=== PATIENT | male | born 1965 | race Caucasian/White ===

== ENCOUNTER 2018-04-16 21:58 | Inpatient (IN) ==
[2018-04-17] MEDS ORDERED: LACTULOSE 20 GM/30 ML UDCUP PO PRN (00:57)
[2018-04-17] MEDS ORDERED: NICOTINE 21 MG/24 HR PATCH TRANSDERM PRN (00:57)
[2018-04-17] MEDS ORDERED: MORPHINE 4 MG/1 ML VIAL IV PRN ×2 (00:57→08:43)
[2018-04-17] MEDS ORDERED: ZALEPLON 5 MG CAPSULE PO PRN (00:57)
[2018-04-17] MEDS ORDERED: diphenhydrAMINE CAP 25 MG CAPSULE PO PRN (00:57)
[2018-04-17] MEDS ORDERED: ACETAMINOPHEN 325 MG TABLET PO PRN (00:57)
[2018-04-17] MEDS ORDERED: ONDANSETRON 4 MG/2 ML VIAL IV PRN (00:57)
[2018-04-17] MEDS ORDERED: ALBUTEROL 2.5 MG/3 ML NEB RESP TX PRN (00:57)
[2018-04-17] MEDS ORDERED: PROMETHAZINE 25 MG/1 ML VIAL IM PRN (00:57)
[2018-04-17] MEDS ORDERED: SODIUM CHLORIDE 0.9% 1,000 ML IV SCH (01:00)
[2018-04-17] MEDS ORDERED: NITROGLYCERIN SL 0.4 MG TABLET SL PRN (01:02)
[2018-04-17 01:55] LABS: Basophils % 0.1 % (0.0-0.8); Eosinophils # 0.2 10*3/uL (0.0-0.87); Eosinophils % 2.5 % (0.00-10.9); Hematocrit 41.1 VOL% (42.0-52.0); Hemoglobin 13.8 GM/DL (14.0-18.0); Immature Granulocytes % 0.5 %; Immature Granulocytes Absolute 0.04 #; Lymphocytes # 1.3 10*3/uL (1.4-4.0); Lymphocytes % 16.2 % (21.2-54.2); Mean Corpuscular HGB Conc 33.6 GM/DL (32-36); Mean Corpuscular Hemoglobin 32 PG (27-34); Mean Corpuscular Volume 95.4 FL (87-102); Mean Platelet Volume 11.3 FL (9.6-12.0); Monocytes # 0.6 10*3/uL (0.11-0.8); Monocytes % 6.9 % (1.7-12.7); Neutrophils # 5.9 10*3/uL (1.4-7.4); Neutrophils % 73.8 % (38.7-73.9); Platelet Count 115 T/CUMM (130-400); Red Blood Count 4.31 MC/CUMM (3.8-5.5); Red Cell Distribution Width 13.4 % (9.3-17.3)
[2018-04-17 02:07] LABS: PT Patient Result 10.1 SECS
[2018-04-17 02:16] LABS: Lactic Acid 0.6 MMOL/L (0.4-2.0); Phenytoin (Dilantin) 1.8 UG/ML (10-20)
[2018-04-17 02:18] LABS: Alanine Aminotransferase 15 U/L (16-61); Albumin 3.2 G/DL (3.4-5.0); Alkaline Phosphatase 118 U/L (45-117); Aspartate Amino Transferase 24 U/L (0-37); Bilirubin,Total < 0.39 MG/DL (0.2-1.0); Blood Urea Nitrogen 18 MG/DL (7-18); Calcium 8.5 MG/DL (8.5-10.1); Glucose 120 MG/DL (74-106); Osmolality,Calculated 281.4 MOS/KG (273-304); Potassium 3.7 MMOL/L (3.5-5.1); Sodium 140 MMOL/L (136-145); Total Protein 6.8 G/DL (6.4-8.3)
[2018-04-17 02:24] LABS: Risk Ratio 4.58; Thyroid Stimulating Hormone 3.23 uIU/ml (0.358-3.74); VLDL CHOLESTEROL 42.6 MG/DL
[2018-04-17] MEDS ORDERED: ENOXAPARIN 80 MG/0.8 ML SYRINGE SUBCUT SCH (03:30)
[2018-04-17 05:11] LABS: Apearance,Urine CLEAR (Clear); Bilirubin,Urine Negative (Negative); Blood, Urine Negative (Negative); Glucose,Urine (UA) Negative (Negative); Hyaline Casts,Urine 1 /LPF (0-3); Ketones,Urine Negative (Negative); Mucus,Urine Many /LPF (Occasional); Nitrite,Urine Negative (Negative); Protein,Urine Negative; RBC,Urine 3 /HPF (0-4); Urine Color Yellow (Yellow); Urine Specific Gravity 1.017 (1.001-1.035); Urine Urobilinogen < 2.0 EU/DL (0.2-1.0); WBC,Urine 3 /HPF (0-6)
[2018-04-17 05:24] LABS: Basophils % 0.2 % (0.0-0.8); Eosinophils # 0.2 10*3/uL (0.0-0.87); Hematocrit 41.7 VOL% (42.0-52.0); Hemoglobin 13.7 GM/DL (14.0-18.0); Immature Granulocytes % 0.3 %; Immature Granulocytes Absolute 0.02 #; Lymphocytes # 1.1 10*3/uL (1.4-4.0); Lymphocytes % 17.3 % (21.2-54.2); Mean Corpuscular HGB Conc 32.9 GM/DL (32-36); Mean Corpuscular Hemoglobin 31 PG (27-34); Mean Corpuscular Volume 94.3 FL (87-102); Mean Platelet Volume 11.9 FL (9.6-12.0); Monocytes # 0.5 10*3/uL (0.11-0.8); Monocytes % 7.3 % (1.7-12.7); Neutrophils # 4.5 10*3/uL (1.4-7.4); Neutrophils % 71.9 % (38.7-73.9); Platelet Count 113 T/CUMM (130-400); Red Blood Count 4.42 MC/CUMM (3.8-5.5); Red Cell Distribution Width 13.3 % (9.3-17.3); White Blood Count 6.3 T/CUMM (4-12)
[2018-04-17 05:31] LABS: Alanine Aminotransferase 15 U/L (16-61); Alkaline Phosphatase 118 U/L (45-117); Aspartate Amino Transferase 22 U/L (0-37); Bilirubin,Total < 0.39 MG/DL (0.2-1.0); Blood Urea Nitrogen 16 MG/DL (7-18); Calcium 8.6 MG/DL (8.5-10.1); Glucose 91 MG/DL (74-106); Osmolality,Calculated 275.7 MOS/KG (273-304); Potassium 3.7 MMOL/L (3.5-5.1); Sodium 138 MMOL/L (136-145); Total Protein 6.8 G/DL (6.4-8.3)
[2018-04-17] MEDS ORDERED: NITROGLYCERIN 2% OINT 1 INCH/GM PACK TOP ONE (08:42)
[2018-04-17] MEDS ORDERED: PHENOBARBITAL 32.4 MG PO SCH (09:00)
[2018-04-17] MEDS ORDERED: ENOXAPARIN 40 MG/0.4 ML SYRINGE SUBCUT SCH (09:00)
[2018-04-17] MEDS ORDERED: ISOSORBIDE MONONITRATE 20 MG TABLET PO SCH (09:00)
[2018-04-17 09:26] LABS: CKMB % 10.1 %
[2018-04-17 09:30] LABS: Troponin I 1.31 NG/ML (0.00-0.045)
[2018-04-17] MEDS: PANTOPRAZOLE 40 MG VIAL IV SCH (09:57)
[2018-04-17] MEDS ORDERED: MAGNESIUM SULF RIDER 2 GM in PREMIX 1 EACH IV PRN ×2 (10:38→13:38)
[2018-04-17] MEDS ORDERED: MAGNESIUM SULF RIDER 4 GM in PREMIX 1 EACH IV PRN (10:38)
[2018-04-17] MEDS: TICAGRELOR 90 MG TABLET PO SCH ×2 (10:38→20:34)
[2018-04-17] MEDS: ASPIRIN CHEW 81 MG TABLET PO SCH (10:38)
[2018-04-17] MEDS: ROSUVASTATIN 10 MG TABLET PO SCH (10:38)
[2018-04-17] MEDS: CILOSTAZOL 50 MG TABLET PO SCH ×2 (12:57→20:34)
[2018-04-17] MEDS: CARVEDILOL 25 MG TABLET PO SCH ×2 (12:57→20:34)
[2018-04-17] MEDS: PHENYTOIN ER 100 MG CAPSULE PO SCH ×2 (12:57→20:33)
[2018-04-17] MEDS ORDERED: POTASSIUM CHLORIDE RIDER 10 MEQ in PREMIX 1 EACH IV PRN (13:38)
[2018-04-17] MEDS: NITROGLYCERIN 2% OINT 1 INCH/GM PACK TOP SCH ×3 (13:42→23:45)
[2018-04-17] MEDS: ENOXAPARIN 80 MG/0.8 ML SYRINGE SUBCUT SCH (15:23)
[2018-04-17] MEDS: TAMSULOSIN 0.4 MG CAPSULE PO SCH (20:34)
[2018-04-17] MEDS: SODIUM CHLORIDE 0.9% 1,000 ML IV SCH (23:45)
[2018-04-18] MEDS: ENOXAPARIN 80 MG/0.8 ML SYRINGE SUBCUT SCH ×2 (03:45→17:56)
[2018-04-18 04:05] LABS: Basophils % 0.2 % (0.0-0.8); Eosinophils # 0.2 10*3/uL (0.0-0.87); Eosinophils % 3.2 % (0.00-10.9); Hematocrit 40.7 VOL% (42.0-52.0); Hemoglobin 13.6 GM/DL (14.0-18.0); Immature Granulocytes % 0.4 %; Immature Granulocytes Absolute 0.02 #; Lymphocytes % 18.1 % (21.2-54.2); Mean Corpuscular HGB Conc 33.4 GM/DL (32-36); Mean Corpuscular Hemoglobin 32 PG (27-34); Mean Corpuscular Volume 94.9 FL (87-102); Mean Platelet Volume 11.6 FL (9.6-12.0); Monocytes # 0.6 10*3/uL (0.11-0.8); Monocytes % 10.2 % (1.7-12.7); Neutrophils # 3.8 10*3/uL (1.4-7.4); Neutrophils % 67.9 % (38.7-73.9); Platelet Count 106 T/CUMM (130-400); Red Blood Count 4.29 MC/CUMM (3.8-5.5); Red Cell Distribution Width 13.2 % (9.3-17.3); White Blood Count 5.6 T/CUMM (4-12)
[2018-04-18 04:24] LABS: Calcium 8.5 MG/DL (8.5-10.1); Osmolality,Calculated 280.3 MOS/KG (273-304); Potassium 3.8 MMOL/L (3.5-5.1)
[2018-04-18] MEDS: NITROGLYCERIN 2% OINT 1 INCH/GM PACK TOP SCH ×4 (06:59→23:20)
[2018-04-18] MEDS ORDERED: DIAZEPAM 5 MG TABLET PO ONE (13:42)
[2018-04-18] MEDS ORDERED: diphenhydrAMINE CAP 25 MG CAPSULE PO ONE (13:42)
[2018-04-18] MEDS: PHENYTOIN ER 100 MG CAPSULE PO SCH ×2 (13:53→21:53)
[2018-04-18] MEDS: TICAGRELOR 90 MG TABLET PO SCH ×2 (13:54→21:52)
[2018-04-18] MEDS: ASPIRIN CHEW 81 MG TABLET PO SCH (13:54)
[2018-04-18] MEDS: CILOSTAZOL 50 MG TABLET PO SCH ×2 (13:54→21:53)
[2018-04-18] MEDS: CARVEDILOL 25 MG TABLET PO SCH ×2 (13:55→21:53)
[2018-04-18] MEDS: PANTOPRAZOLE 40 MG VIAL IV SCH (13:56)
[2018-04-18] MEDS ORDERED: diphenhydrAMINE CAP 50 MG CAPSULE ONE (13:58)
[2018-04-18] MEDS ORDERED: LIDOCAINE 1% 20 ML VIAL ONE (15:02)
[2018-04-18] MEDS ORDERED: fentaNYL 100 MCG/2 ML VIAL ONE (15:02)
[2018-04-18] MEDS ORDERED: MIDAZOLAM 2 MG/2 ML VIAL ONE (15:02)
[2018-04-18] MEDS ORDERED: HEPARIN 5,000 UNIT/1 ML VIAL ONE (15:49)
[2018-04-18] MEDS ORDERED: TIROFIBAN 5,000 MCG/100 ML PREMIX IV ONE (15:50)
[2018-04-18] MEDS ORDERED: TIROFIBAN 5,000 MCG/100 ML PREMIX IV SCH (16:00)
[2018-04-18] MEDS ORDERED: TICAGRELOR 90 MG TABLET ONE (16:32)
[2018-04-18] MEDS: SODIUM CHLORIDE 0.9% 1,000 ML IV SCH ×2 (17:12→17:57)
[2018-04-18] MEDS: NICOTINE 21 MG/24 HR PATCH TRANSDERM SCH (17:14)
[2018-04-18] MEDS: TAMSULOSIN 0.4 MG CAPSULE PO SCH (21:53)
[2018-04-19 01:28] LABS: Basophils % 0.4 % (0.0-0.8); Eosinophils # 0.2 10*3/uL (0.0-0.87); Eosinophils % 3.2 % (0.00-10.9); Hematocrit 39.9 VOL% (42.0-52.0); Hemoglobin 13.8 GM/DL (14.0-18.0); Immature Granulocytes % 0.4 %; Immature Granulocytes Absolute 0.02 #; Lymphocytes # 0.9 10*3/uL (1.4-4.0); Lymphocytes % 16.5 % (21.2-54.2); Mean Corpuscular HGB Conc 34.6 GM/DL (32-36); Mean Corpuscular Hemoglobin 33 PG (27-34); Mean Corpuscular Volume 93.9 FL (87-102); Mean Platelet Volume 10.9 FL (9.6-12.0); Monocytes # 0.6 10*3/uL (0.11-0.8); Monocytes % 10.9 % (1.7-12.7); Neutrophils # 3.8 10*3/uL (1.4-7.4); Neutrophils % 68.6 % (38.7-73.9); Platelet Count 115 T/CUMM (130-400); Red Blood Count 4.25 MC/CUMM (3.8-5.5); Red Cell Distribution Width 13.2 % (9.3-17.3); White Blood Count 5.6 T/CUMM (4-12)
[2018-04-19 01:45] LABS: Calcium 8.4 MG/DL (8.5-10.1); Osmolality,Calculated 281.3 MOS/KG (273-304)
[2018-04-19] MEDS: SODIUM CHLORIDE 0.9% 1,000 ML IV SCH (02:01)
[2018-04-19] MEDS: NITROGLYCERIN 2% OINT 1 INCH/GM PACK TOP SCH (06:45)
[2018-04-19] MEDS ORDERED: buPROPion SR 150 MG TABLET PO SCH ×2 (09:00→21:00)
[2018-04-19] MEDS: ROSUVASTATIN 10 MG TABLET PO SCH (09:09)
[2018-04-19] MEDS: CILOSTAZOL 50 MG TABLET PO SCH (09:10)
[2018-04-19] MEDS: ASPIRIN CHEW 81 MG TABLET PO SCH (09:10)
[2018-04-19] MEDS: TICAGRELOR 90 MG TABLET PO SCH (09:10)
[2018-04-19] MEDS: PHENYTOIN ER 100 MG CAPSULE PO SCH (09:11)
[2018-04-19] MEDS: PANTOPRAZOLE 40 MG VIAL IV SCH (09:11)
[2018-04-19] MEDS: CARVEDILOL 25 MG TABLET PO SCH (09:11)
[2018-04-19] MEDS: NICOTINE 21 MG/24 HR PATCH TRANSDERM SCH (09:18)
[2018-04-19 12:15] VITALS: BP 94/55
== END 2018-04-19 11:58 | disposition home or self-care (01) | DRG 247 ==
LOC: N.TELES 22:39 → SUATTDRO 22:39
PROVIDERS: ADMIT Internal Medicine; ATTEND Hospitalist

== ENCOUNTER 2019-01-10 13:41 | Inpatient (IN) ==
[2019-01-10] MEDS ORDERED: ASPIRIN 325 MG TABLET PO STA (14:18)
[2019-01-10] MEDS ORDERED: MORPHINE 4 MG/1 ML VIAL IV STA (14:18)
[2019-01-10] MEDS: NITROGLYCERIN SL 0.4 MG TABLET SL PRN ×3 (14:23→15:37)
[2019-01-10 14:35] LABS: Basophils % 0.3 % (0.0-0.8); Eosinophils # 0.1 10*3/uL (0.0-0.87); Eosinophils % 1.8 % (0.00-10.9); Hematocrit 46.2 VOL% (42.0-52.0); Hemoglobin 14.9 GM/DL (14.0-18.0); Immature Granulocytes % 0.5 %; Immature Granulocytes Absolute 0.04 #; Lymphocytes # 1.1 10*3/uL (1.4-4.0); Lymphocytes % 14.4 % (21.2-54.2); Mean Corpuscular HGB Conc 32.3 GM/DL (32-36); Mean Corpuscular Volume 94.9 FL (87-102); Mean Platelet Volume 11.2 FL (9.6-12.0); Monocytes % 6.6 % (1.7-12.7); Neutrophils % 76.4 % (38.7-73.9); Platelet Count 143 T/CUMM (130-400); Red Blood Count 4.87 MC/CUMM (3.8-5.5); Red Cell Distribution Width 14.4 % (9.3-17.3); White Blood Count 7.9 T/CUMM (4-12)
[2019-01-10 14:41] LABS: Alanine Aminotransferase 20 U/L (16-61); Albumin 3.7 G/DL (3.4-5.0); Alkaline Phosphatase 108 U/L (45-117); Aspartate Amino Transferase 21 U/L (0-37); Bilirubin,Total < 0.39 MG/DL (0.2-1.0); Blood Urea Nitrogen 22 MG/DL (7-18); Calcium 8.8 MG/DL (8.5-10.1); Glucose 103 MG/DL (74-106); Osmolality,Calculated 281.4 MOS/KG (273-304); Total Protein 7.6 G/DL (6.4-8.3)
[2019-01-10 14:48] LABS: INR 0.9; PT Patient Result 10.2 SECS; Partial Thromboplastin Time 27.1 SECS (0-40)
[2019-01-10 15:03] LABS: Troponin I 0.502 NG/ML (0.00-0.045)
[2019-01-10] MEDS ORDERED: diphenhydrAMINE CAP 25 MG CAPSULE PO ONE (15:59)
[2019-01-10] MEDS ORDERED: DIAZEPAM 5 MG TABLET PO ONE (15:59)
[2019-01-10] MEDS ORDERED: ENOXAPARIN 80 MG/0.8 ML SYRINGE SUBCUT STA (16:07)
[2019-01-10] MEDS ORDERED: ENOXAPARIN 80 MG/0.8 ML SYRINGE SUBCUT ONE (16:08)
[2019-01-10] MEDS ORDERED: NITROGLYCERIN SL 0.4 MG TABLET SL PRN (16:11)
[2019-01-10] MEDS: SODIUM CHLORIDE 0.9% 1,000 ML IV SCH (16:13)
[2019-01-10] MEDS ORDERED: TICAGRELOR 90 MG TABLET ONE (16:17)
[2019-01-10] MEDS ORDERED: TICAGRELOR 90 MG TABLET PO STA (16:19)
[2019-01-10] MEDS ORDERED: fentaNYL 100 MCG/2 ML VIAL ONE (16:30)
[2019-01-10] MEDS ORDERED: HEPARIN/NACL 0.9% 2 UNITS/ML 1,000 ML IV ONE (16:30)
[2019-01-10] MEDS ORDERED: MIDAZOLAM 2 MG/2 ML VIAL ONE (16:30)
[2019-01-10] MEDS ORDERED: LIDOCAINE 1% 20 ML VIAL ONE (16:30)
[2019-01-10] MEDS ORDERED: EPTIFIBATIDE 20,000 MCG/10 ML VIAL ONE (17:08)
[2019-01-10] MEDS ORDERED: HEPARIN/NACL 0.9% 2 UNITS/ML 500 ML IV ONE (17:13)
[2019-01-10] MEDS: NICOTINE 21 MG/24 HR PATCH TRANSDERM SCH (19:33)
[2019-01-10] MEDS: MONTELUKAST 10 MG TABLET PO SCH (20:39)
[2019-01-10] MEDS: CARVEDILOL 25 MG TABLET PO SCH (20:39)
[2019-01-10] MEDS: TICAGRELOR 90 MG TABLET PO SCH (20:40)
[2019-01-10] MEDS: TAMSULOSIN 0.4 MG CAPSULE PO SCH (20:40)
[2019-01-10] MEDS: buPROPion XL 150 MG TABLET PO SCH (20:40)
[2019-01-10] MEDS: PHENobarbital 30 MG TABLET PO SCH (20:41)
[2019-01-11 00:44] LABS: Calcium 8.6 MG/DL (8.5-10.1); Osmolality,Calculated 285.3 MOS/KG (273-304)
[2019-01-11 00:49] LABS: Basophils % 0.1 % (0.0-0.8); Eosinophils # 0.1 10*3/uL (0.0-0.87); Eosinophils % 1.4 % (0.00-10.9); Hematocrit 42.1 VOL% (42.0-52.0); Hemoglobin 13.8 GM/DL (14.0-18.0); Immature Granulocytes % 0.5 %; Immature Granulocytes Absolute 0.04 #; Lymphocytes # 1.3 10*3/uL (1.4-4.0); Lymphocytes % 15.6 % (21.2-54.2); Mean Corpuscular HGB Conc 32.8 GM/DL (32-36); Mean Platelet Volume 11.3 FL (9.6-12.0); Neutrophils % 74.4 % (38.7-73.9); Platelet Count 119 T/CUMM (130-400); Red Blood Count 4.43 MC/CUMM (3.8-5.5); Red Cell Distribution Width 14.3 % (9.3-17.3); White Blood Count 8.5 T/CUMM (4-12)
[2019-01-11] MEDS: SODIUM CHLORIDE 0.9% 1,000 ML IV SCH (01:00)
[2019-01-11] MEDS: ASPIRIN EC 81 MG TABLET PO SCH (09:00)
[2019-01-11] MEDS: ARIPiprazole 5 MG TABLET PO SCH (09:00)
[2019-01-11] MEDS: PHENobarbital 30 MG TABLET PO SCH ×2 (09:00→20:21)
[2019-01-11] MEDS: TICAGRELOR 90 MG TABLET PO SCH ×2 (09:00→20:22)
[2019-01-11] MEDS ORDERED: ASPIRIN CHEW 81 MG TABLET PO SCH (09:00)
[2019-01-11] MEDS: NICOTINE 21 MG/24 HR PATCH TRANSDERM SCH (09:00)
[2019-01-11] MEDS: CARVEDILOL 25 MG TABLET PO SCH ×2 (09:00→20:22)
[2019-01-11] MEDS: buPROPion XL 150 MG TABLET PO SCH ×2 (09:01→20:21)
[2019-01-11] MEDS: PANTOPRAZOLE 40 MG TABLET PO SCH (09:01)
[2019-01-11] MEDS: LISINOPRIL 2.5 MG TABLET PO SCH (09:55)
[2019-01-11] MEDS: ACETAMINOPHEN 325 MG TABLET PO PRN ×2 (11:35→18:16)
[2019-01-11] MEDS: TAMSULOSIN 0.4 MG CAPSULE PO SCH (20:21)
[2019-01-11] MEDS: MONTELUKAST 10 MG TABLET PO SCH (20:21)
[2019-01-12 05:46] LABS: Basophils % 0.3 % (0.0-0.8); Eosinophils # 0.1 10*3/uL (0.0-0.87); Hematocrit 41.5 VOL% (42.0-52.0); Hemoglobin 13.7 GM/DL (14.0-18.0); Immature Granulocytes % 0.4 %; Immature Granulocytes Absolute 0.03 #; Lymphocytes # 0.8 10*3/uL (1.4-4.0); Lymphocytes % 11.3 % (21.2-54.2); Mean Corpuscular Volume 94.3 FL (87-102); Mean Platelet Volume 11.8 FL (9.6-12.0); Monocytes % 7.8 % (1.7-12.7); Neutrophils % 78.2 % (38.7-73.9); Platelet Count 113 T/CUMM (130-400); Red Cell Distribution Width 14.1 % (9.3-17.3)
[2019-01-12 05:54] LABS: Calcium 8.6 MG/DL (8.5-10.1); Osmolality,Calculated 279.4 MOS/KG (273-304)
[2019-01-12] MEDS: ACETAMINOPHEN 325 MG TABLET PO PRN (07:27)
[2019-01-12 08:37] VITALS: BP 107/57
[2019-01-12] MEDS ORDERED: ROSUVASTATIN 10 MG TABLET PO SCH (09:00)
[2019-01-12] MEDS: LISINOPRIL 2.5 MG TABLET PO SCH (09:08)
[2019-01-12] MEDS: CARVEDILOL 25 MG TABLET PO SCH (09:08)
[2019-01-12] MEDS: ARIPiprazole 5 MG TABLET PO SCH (09:10)
[2019-01-12] MEDS: buPROPion XL 150 MG TABLET PO SCH (09:10)
[2019-01-12] MEDS: PHENobarbital 30 MG TABLET PO SCH (09:10)
[2019-01-12] MEDS: ASPIRIN EC 81 MG TABLET PO SCH (09:10)
[2019-01-12] MEDS: PANTOPRAZOLE 40 MG TABLET PO SCH (09:10)
[2019-01-12] MEDS: TICAGRELOR 90 MG TABLET PO SCH (09:10)
[2019-01-12] MEDS: NICOTINE 21 MG/24 HR PATCH TRANSDERM SCH (09:11)
== END 2019-01-12 10:30 | disposition home or self-care (01) | DRG 246 ==
LOC: N.ED 13:41 → N.EDINP 15:59 → N.TELES 16:18 → N.ICU 17:40 → N.TELEN 01-11 10:23
PROVIDERS: ADMIT Internal Medicine Cardiovascular Disease; ATTEND Internal Medicine Cardiovascular Disease

== ENCOUNTER 2019-08-28 09:45 | Observation (INO) ==
[2019-08-28] MEDS ORDERED: NITROGLYCERIN SL 0.4 MG TABLET SL PRN ×2 (10:23→16:12)
[2019-08-28] MEDS ORDERED: ONDANSETRON 4 MG/2 ML VIAL IV STA (10:23)
[2019-08-28] MEDS ORDERED: MORPHINE 4 MG/1 ML VIAL IV STA (10:23)
[2019-08-28] MEDS ORDERED: ASPIRIN 325 MG TABLET PO STA (10:23)
[2019-08-28 10:31] LABS: Basophils % 0.4 % (0.0-0.8); Eosinophils # 0.1 10*3/uL (0.0-0.87); Eosinophils % 2.5 % (0.00-10.9); Hematocrit 42.9 VOL% (42.0-52.0); Hemoglobin 13.8 GM/DL (14.0-18.0); Immature Granulocytes % 0.4 %; Immature Granulocytes Absolute 0.02 #; Lymphocytes # 0.7 10*3/uL (1.4-4.0); Lymphocytes % 13.5 % (21.2-54.2); Mean Corpuscular HGB Conc 32.2 GM/DL (32-36); Mean Corpuscular Volume 94.9 FL (87-102); Mean Platelet Volume 11.2 FL (9.6-12.0); Monocytes % 7.3 % (1.7-12.7); Neutrophils % 75.9 % (38.7-73.9); Platelet Count 148 T/CUMM (130-400); Red Blood Count 4.52 MC/CUMM (3.8-5.5); White Blood Count 5.2 T/CUMM (4-12)
[2019-08-28] MEDS ORDERED: FUROSEMIDE 40 MG/4 ML VIAL IV STA (10:33)
[2019-08-28 10:36] LABS: PT Patient Result 10.7 SECS (9.6-12.2)
[2019-08-28 10:47] LABS: Albumin 3.3 G/DL (3.4-5.0); Bilirubin,Total 0.4 MG/DL (0.2-1.0); Calcium 8.5 MG/DL (8.5-10.1); Osmolality,Calculated 282.3 MOS/KG (273-304); Total Protein 7.1 G/DL (6.4-8.3)
[2019-08-28 11:35] LABS: Barbiturates Screen,Urine Positive (Negative); Benzodiazepines Screen,Urine Negative (Negative); Cannabinoid Screen,Urine Negative (Negative); Opiate Screen,Urine Positive (Negative); Phencyclidine Screen,Urine Negative (Negative)
[2019-08-28] MEDS ORDERED: ACETAMINOPHEN 325 MG TABLET PO PRN (13:01)
[2019-08-28] MEDS ORDERED: ONDANSETRON 4 MG/2 ML VIAL IV PRN (13:01)
[2019-08-28 15:23] LABS: Apearance,Urine CLEAR (Clear); Bilirubin,Urine Negative (Negative); Blood, Urine Small mg/dL (Negative); Glucose,Urine (UA) Negative (Negative); Hyaline Casts,Urine 6 /LPF (0-3); Ketones,Urine Negative (Negative); Mucus,Urine Many /LPF (Occasional); Nitrite,Urine Negative (Negative); Protein,Urine Negative; RBC,Urine 7 /HPF (0-4); Sperm,Urine Occasional /HPF (Negative); Squamous Epithelial Cell,Urine Occasional /HPF (0-10); Urine Color Yellow (Yellow); Urine Specific Gravity 1.019 (1.001-1.035); Urine Urobilinogen < 2.0 EU/DL (0.2-1.0); WBC,Urine 1 /HPF (0-6)
[2019-08-28] MEDS ORDERED: NICOTINE 21 MG/24 HR PATCH TRANSDERM SCH (17:00)
[2019-08-28] MEDS: APIXABAN 2.5 MG TABLET PO SCH (20:30)
[2019-08-28] MEDS: TICAGRELOR 90 MG TABLET PO SCH (20:30)
[2019-08-28] MEDS: carvediloL 25 MG TABLET PO SCH (20:31)
[2019-08-29 04:36] LABS: Basophils % 0.5 % (0.0-0.8); Eosinophils # 0.2 10*3/uL (0.0-0.87); Eosinophils % 2.5 % (0.00-10.9); Hematocrit 38.1 VOL% (42.0-52.0); Hemoglobin 12.7 GM/DL (14.0-18.0); Immature Granulocytes % 0.2 %; Immature Granulocytes Absolute 0.01 #; Lymphocytes % 15.7 % (21.2-54.2); Mean Corpuscular HGB Conc 33.3 GM/DL (32-36); Mean Corpuscular Volume 92.7 FL (87-102); Mean Platelet Volume 11.6 FL (9.6-12.0); Monocytes % 7.4 % (1.7-12.7); Neutrophils % 73.7 % (38.7-73.9); Platelet Count 135 T/CUMM (130-400); Red Blood Count 4.11 MC/CUMM (3.8-5.5); Red Cell Distribution Width 15.1 % (9.3-17.3); White Blood Count 6.1 T/CUMM (4-12)
[2019-08-29 05:05] LABS: Albumin 3.1 G/DL (3.4-5.0); Calcium 8.4 MG/DL (8.5-10.1); Osmolality,Calculated 279.5 MOS/KG (273-304)
[2019-08-29 05:10] LABS: Risk Ratio 6.85; VLDL CHOLESTEROL 29.8 MG/DL
[2019-08-29 07:59] VITALS: BP 134/75
[2019-08-29] MEDS: APIXABAN 2.5 MG TABLET PO SCH (08:49)
[2019-08-29] MEDS: TICAGRELOR 90 MG TABLET PO SCH (08:50)
[2019-08-29] MEDS: carvediloL 25 MG TABLET PO SCH (08:50)
[2019-08-29] MEDS ORDERED: FUROSEMIDE 40 MG/4 ML VIAL IV SCH (18:00)
[2019-08-30] MEDS ORDERED: ROSUVASTATIN 10 MG TABLET PO SCH (09:00)
== END 2019-08-29 10:10 | disposition home or self-care (01) ==
LOC: N.ED 09:45 → N.EDINP 09:45 → N.2W 12:56
PROVIDERS: ADMIT Internal Medicine; ATTEND Internal Medicine